=== PATIENT | male | born 1955 | race Asian ===

== ENCOUNTER 2021-11-19 07:53 | Emergency (ER) | payer MEDICAID, OTHER ==
[~2021-11-19] VITALS: Ht 154.9 cm; Wt 64.0 kg
[~2021-11-19 07:53] MED LIST: AZIT500T9 PO
[2021-11-19] MEDS ORDERED: ibuprofen 200mg tablet PO ONE (09:20)
[2021-11-19] MEDS ORDERED: dexamethasone sod phosphate 10mg/ml inj IM STA (10:36)
[2021-11-19] MEDS ORDERED: LIDOcaine 5% patch TP STA (10:36)
[2021-11-19] MEDS ORDERED: DEXA6TAB6 PO (12:24)
[2021-11-19] MEDS ORDERED: LIDO700A32 TOP (12:26)
[2021-11-19] MEDS ORDERED: HYDR-3972 PO (12:26)
[2021-11-19 13:19] VITALS: BP 155/93
== END 2021-11-19 13:23 | disposition home or self-care (01) ==
LOC: ER 07:54
DX: M54.50 Low back pain, unspecified (principal); M79.605 Pain in left leg; M25.552 Pain in left hip; E11.9 Type 2 diabetes mellitus without complications; I50.9 Heart failure, unspecified; Z98.890 Other specified postprocedural states; Z79.2 Long term (current) use of antibiotics; Z79.899 Other long term (current) drug therapy
CPT/HCPCS: 72100; 72170; 96372; 99284; J1100

== ENCOUNTER 2023-09-15 19:06 | Inpatient (IN) | payer MEDICARE, MEDICAID ==
[~2023-09-15] VITALS: Ht 154.9 cm; Wt 63.0 kg
[~2023-09-15 19:06] MED LIST changes: +DEXA6TAB6 PO; +LIDO700A32 TOP
[2023-09-15] MEDS: morphine 4 MG/ML inj SYRINge IV ONE (19:25)
[2023-09-15 19:45] LABS: BASOPHILS % (AUTO) 0.1 % (0-1); EOSINOPHILS # (AUTO) 0.1 X10'3 (0-0.9); EOSINOPHILS % (AUTO) 0.7 % (0-6); HEMATOCRIT 46.6 % (42.0-52.0); HEMOGLOBIN 15.6 g/dl (14.0-17.9); LYMPHOCYTES # (AUTO) 0.7 X10'3 (1.1-4.8); LYMPHOCYTES % (AUTO) 9.4 % (21-51); MEAN CORPUSCULAR HEMOGLOBIN 30.5 PG (27.0-31.0); MEAN CORPUSCULAR HGB CONC 33.5 g/dL (33.0-36.5); MEAN CORPUSCULAR VOLUME 90.9 FL (78-98); MEAN PLATELET VOLUME 9.7 FL (7.4-10.4); MONOCYTES # (AUTO) 0.7 X10'3 (0-0.9); MONOCYTES % (AUTO) 9.4 % (2-12); NEUTROPHILS % (AUTO) 80.4 % (42-75); PLATELET COUNT 134 X10'3 (140-440); RED BLOOD COUNT 5.12 X10'6 (4.70-6.10); RED CELL DISTRIBUTION WIDTH 13.9 % (11.5-14.5); WHITE BLOOD COUNT 7.5 X10'3 (4.5-11.0)
[2023-09-15] MEDS: ondansetron/PF 4mg/2ml inj IV ONE ×2 (19:45→21:24)
[2023-09-15 20:03] LABS: ALANINE AMINOTRANSFERASE 25 U/L (12-78); ALBUMIN 2.6 G/DL (3.4-5.0); ALBUMIN/GLOBULIN RATIO 0.7 (1.1-1.5); ALKALINE PHOSPHATASE 78 IU/L (46-116); ANION GAP 11 (8-16); ASPARTATE AMINO TRANSFERASE 28 U/L (10-37); BILIRUBIN,TOTAL 1.6 MG/DL (0.1-1.0); BLOOD UREA NITROGEN 33 MG/DL (7-18); BUN/CREATININE RATIO 24.3 (10.0-20.0); CALCIUM 7.7 MG/DL (8.5-10.1); CHLORIDE 104 MMOL/L (99-107); CREATININE 1.36 MG/DL (0.60-1.10); GLUCOSE 293 MG/DL (70-104); POTASSIUM 4.3 MMOL/L (3.5-5.1); SODIUM 137 MMOL/L (135-145); TOTAL CARBON DIOXIDE 22.1 MMOL/L (24-32); TOTAL PROTEIN 6.3 G/DL (6.4-8.2); eCRCL 40 ML/MIN; eGFR 53 ML/MIN
[2023-09-15] MEDS: ringers solution, lactated 1000ml IV soln IV ONE (20:07)
[2023-09-15] MEDS: insulin regular, human 10 units/0.1 ml syringe SQ ONE (20:12)
[2023-09-15] MEDS ORDERED: CARV25TA3 PO (20:44)
[2023-09-15] MEDS ORDERED: [UNRECOGNIZED DRUG - OTHER] (20:44)
[2023-09-15] MEDS ORDERED: INSU100I31 SQ (20:44)
[2023-09-15] MEDS ORDERED: APIX5TAB3 PO (20:44)
[2023-09-15] MEDS ORDERED: CYCL-394 PO (20:44)
[2023-09-15] MEDS: diltiazem 5mg/ml 5ml inj. IV ONE (20:52)
[2023-09-15] MEDS: diltiazem-NS 100mg/100ml 100 ML IV SCH (20:53)
[2023-09-15] MEDS: morphine 10mg/ml inj. IV ONE (21:25)
[2023-09-15] MEDS: piperacillin/tazo 3.375gm/50ml 50 ML IV ONE (21:25)
[2023-09-15] MEDS: normal saline 1000ML IV soln IVB ONE (21:25)
[2023-09-15] MEDS ORDERED: meperidine/PF 25mg/ml syringe IV PRN ×6 (21:30→23:05)
[2023-09-15] MEDS ORDERED: enalaprilat dihydrate 2.5mg/2ml vial IV PRN ×2 (21:30→23:05)
[2023-09-15] MEDS ORDERED: morphine 2 MG/ML inj. syringe IV PRN ×2 (21:30→23:05)
[2023-09-15] MEDS ORDERED: proCHLORperazine 10 MG/2 ml inj IV PRN ×2 (21:30→23:05)
[2023-09-15] MEDS ORDERED: ondansetron/PF 4mg/2ml inj IV PRN ×2 (21:30→23:05)
[2023-09-15] MEDS ORDERED: morphine 4 MG/ML inj SYRINge IV PRN ×2 (21:30→23:05)
[2023-09-15] MEDS ORDERED: magnesium Cl slow-release 64mg tablet PO PRN (22:20)
[2023-09-15] MEDS ORDERED: potassium Cl 20 mEq SR tablet PO PRN ×2 (22:20)
[2023-09-15] MEDS ORDERED: magnesium 4gm in 100ml NS 100 ML IV PRN (22:20)
[2023-09-15] MEDS ORDERED: magnesium 2GM in 50ml NS 50 ML IV PRN (22:20)
[2023-09-15] MEDS ORDERED: potassium Cl 40MEQ/1/2NS 520ml 520 ML IV PRN (22:20)
[2023-09-15] MEDS ORDERED: DEXTROSE 15 GM of carb/4 tabs (each vial/BOTTLE has 4 tablets) PO PRN ×2 (22:40)
[2023-09-15] MEDS ORDERED: glucagon, human recombinant 1mg kit SUBCUT PRN (22:40)
[2023-09-15] MEDS ORDERED: dextrose 50%-water 50ml dispensing syringe IV PRN ×2 (22:40)
[2023-09-15] MEDS ORDERED: sevoflurane 250ml liquid IH ONE (22:55)
[2023-09-15] MEDS ORDERED: labetalol 20mg/4ml (5mg/ml) syringe IV PRN (23:05)
[2023-09-15] MEDS ORDERED: fentaNYL /PF 50mcg/ml 5ml ampule ONE (23:06)
[2023-09-15] MEDS ORDERED: midazolam 1 mg/ML 2ml injection ONE (23:06)
[2023-09-15] MEDS ORDERED: rocuronium 10mg/ml inj IV ONE (23:25)
[2023-09-15] MEDS ORDERED: sodium bicarbonate (8.4%) inj. 1 MEQ/ML ML ONE (23:32)
[2023-09-15] MEDS ORDERED: phenylephrine 10mg/ml inj. -priapism dosing ONE (23:38)
[2023-09-15 23:53] LABS: HEMOGLOBIN A1C 10.6 % (4.5-6.2)
[2023-09-16] VITALS (30 sets, daily range): BP systolic 105–186; BP diastolic 60–99; PULSE 72–110; RESP 8–24; O2SAT 93–98
[2023-09-16 00:08] LABS: ABG BASE EXCESS -1.1 mmol/L (-2.0-2.0); ABG HCO3 21.4 mmol/L (22.0-26.0); ABG OXYGEN SATURATION 99.5 % (94-97); ABG PCO2 (T) 29.3 mmHg (35.0-48.0); ABG PH (T) 7.481 (7.340-7.440); ABG PO2 (T) 178.7 mmHg (75.0-100.0); FCOHb 0.8 % (0.0-3.9); FHHb 0.5 % (0.0-5.0); FMetHb 0.1 % (0.0-1.5); FO2Hb 98.6 % (94-97); MODE OR; PATIENT TEMPERATURE 36.5; TOTAL HEMOGLOBIN 14.2 G/dl (14.0-17.9)
[2023-09-16] MEDS ORDERED: BUPIVAcaine 0.5% inj/PF 30 ML ONE (00:21)
[2023-09-16] MEDS: labetalol 20mg/4ml (5mg/ml) syringe IV PRN (00:59)
[2023-09-16] MEDS: ringers solution, lacted 1,000 ML IV SCH ×3 (01:32→17:27)
[2023-09-16] MEDS: diltiazem-NS 100mg/100ml 100 ML IV SCH (02:21)
[2023-09-16] MEDS: normal saline 1000ml 1,000 ML IV SCH (02:22)
[2023-09-16] MEDS: HYDROmorphone/PF 0.2 MG/ML SYRINGE IV PRN (02:22)
[2023-09-16] MEDS: morphine 2 MG/ML inj. syringe IV PRN (04:34)
[2023-09-16 05:13] LABS: ALBUMIN 2.2 G/DL (3.4-5.0); ANION GAP 11 (8-16); BLOOD UREA NITROGEN 24 MG/DL (7-18); BUN/CREATININE RATIO 24.7 (10.0-20.0); CALCIUM 6.6 MG/DL (8.5-10.1); CHLORIDE 108 MMOL/L (99-107); CREATININE 0.97 MG/DL (0.60-1.10); GLUCOSE 251 MG/DL (70-104); MAGNESIUM 1.4 MG/DL (1.5-2.4); SODIUM 140 MMOL/L (135-145); TOTAL CARBON DIOXIDE 21.5 MMOL/L (24-32); eCRCL 56 ML/MIN; eGFR 78 ML/MIN
[2023-09-16 05:15] LABS: BASOPHILS % (AUTO) 0.1 % (0-1); EOSINOPHILS % (AUTO) 0.1 % (0-6); HEMATOCRIT 43.8 % (42.0-52.0); HEMOGLOBIN 14.5 g/dl (14.0-17.9); LYMPHOCYTES # (AUTO) 0.4 X10'3 (1.1-4.8); LYMPHOCYTES % (AUTO) 5.4 % (21-51); MEAN CORPUSCULAR HEMOGLOBIN 30.1 PG (27.0-31.0); MEAN CORPUSCULAR HGB CONC 33.1 g/dL (33.0-36.5); MEAN PLATELET VOLUME 9.7 FL (7.4-10.4); MONOCYTES # (AUTO) 0.4 X10'3 (0-0.9); MONOCYTES % (AUTO) 6.9 % (2-12); NEUTROPHILS # (AUTO) 5.6 X10'3 (1.8-7.7); NEUTROPHILS % (AUTO) 87.5 % (42-75); PLATELET COUNT 135 X10'3 (140-440); RED BLOOD COUNT 4.82 X10'6 (4.70-6.10); RED CELL DISTRIBUTION WIDTH 14.1 % (11.5-14.5); WHITE BLOOD COUNT 6.4 X10'3 (4.5-11.0)
[2023-09-16] MEDS: carVEDilol 12.5mg tablet PO SCH (08:45)
[2023-09-16] MEDS: heparin, porcine 5000 units/ml vial SQ SCH (08:45)
[2023-09-16] MEDS: K and/or MAG REPLACEMENT MC SCH (08:46)
[2023-09-16] MEDS: piperacillin/tazo 4.5gm/100ml 100 ML IV SCH (09:05)
[2023-09-16] MEDS: INSULIN LISPRO 100 UNIT/ML INSULN.PEN MULTI-DOSE SQ SCH (09:26)
[2023-09-16] MEDS: ondansetron/PF 4mg/2ml inj IV PRN (14:20)
[2023-09-16] MEDS ORDERED: NITR0.4T51 SL (14:46)
[2023-09-16] MEDS ORDERED: INSU300I12 SQ (14:46)
[2023-09-16 18:58] LABS: MAGNESIUM 1.8 MG/DL (1.5-2.4); POTASSIUM 4.1 MMOL/L (3.5-5.1)
[2023-09-16] MEDS: enoxaparin 40mg/0.4ml syringe SUBCUT SCH (20:03)
[2023-09-17] VITALS (32 sets, daily range): BP systolic 129–180; BP diastolic 66–106; PULSE 65–131; RESP 13–36; TEMP 98–98.8; O2SAT 92–96
[2023-09-17] MEDS: HYDROmorphone inj. 0.5 MG/0.5 ML DISP.SYRIN IV PRN (00:36)
[2023-09-17 03:19] LABS: BASOPHILS % (AUTO) 0.1 % (0-1); EOSINOPHILS % (AUTO) 0 % (0-6); HEMOGLOBIN 13.9 g/dl (14.0-17.9); LYMPHOCYTES # (AUTO) 0.7 X10'3 (1.1-4.8); MEAN PLATELET VOLUME 9.3 FL (7.4-10.4); MONOCYTES # (AUTO) 0.9 X10'3 (0-0.9); MONOCYTES % (AUTO) 8.7 % (2-12); NEUTROPHILS # (AUTO) 8.6 X10'3 (1.8-7.7); NEUTROPHILS % (AUTO) 84.2 % (42-75); PLATELET COUNT 144 X10'3 (140-440); RED BLOOD COUNT 4.62 X10'6 (4.70-6.10); RED CELL DISTRIBUTION WIDTH 14.2 % (11.5-14.5); WHITE BLOOD COUNT 10.2 X10'3 (4.5-11.0)
[2023-09-17 04:01] LABS: ANION GAP 8 (8-16); BLOOD UREA NITROGEN 22 MG/DL (7-18); BUN/CREATININE RATIO 22.2 (10.0-20.0); CALCIUM 7.3 MG/DL (8.5-10.1); CHLORIDE 105 MMOL/L (99-107); CREATININE 0.99 MG/DL (0.60-1.10); GLUCOSE 253 MG/DL (70-104); MAGNESIUM 1.8 MG/DL (1.5-2.4); POTASSIUM 4.1 MMOL/L (3.5-5.1); SODIUM 137 MMOL/L (135-145); TOTAL CARBON DIOXIDE 24.5 MMOL/L (24-32); eCRCL 55 ML/MIN; eGFR 76 ML/MIN
[2023-09-17] MEDS: magnesium 2GM in 50ml NS 50 ML IV ONE (08:09)
[2023-09-17] MEDS: diltiazem-NS 100mg/100ml 100 ML IV SCH ×2 (09:11→09:38)
[2023-09-17] MEDS: morphine 2 MG/ML inj. syringe IV PRN (17:40)
[2023-09-17] MEDS: ketorolac tromethamine 15mg/ml inj. IV ONE (19:50)
[2023-09-18] VITALS (23 sets, daily range): BP systolic 136–163; BP diastolic 65–106; PULSE 57–94; RESP 16–30; TEMP 98.1–98.8; O2SAT 90–95
[2023-09-18 11:35] LABS: BASOPHILS % (AUTO) 0 % (0-1); EOSINOPHILS % (AUTO) 0.1 % (0-6); HEMATOCRIT 44.9 % (42.0-52.0); LYMPHOCYTES % (AUTO) 6.5 % (21-51); MEAN CORPUSCULAR HEMOGLOBIN 30.2 PG (27.0-31.0); MEAN CORPUSCULAR HGB CONC 33.3 g/dL (33.0-36.5); MEAN CORPUSCULAR VOLUME 90.6 FL (78-98); MEAN PLATELET VOLUME 7.8 FL (7.4-10.4); MONOCYTES # (AUTO) 1.1 X10'3 (0-0.9); NEUTROPHILS # (AUTO) 13.6 X10'3 (1.8-7.7); NEUTROPHILS % (AUTO) 86.4 % (42-75); PLATELET COUNT 161 X10'3 (140-440); RED BLOOD COUNT 4.96 X10'6 (4.70-6.10); RED CELL DISTRIBUTION WIDTH 13.8 % (11.5-14.5); WHITE BLOOD COUNT 15.8 X10'3 (4.5-11.0)
[2023-09-18 11:53] LABS: ALBUMIN 2.1 G/DL (3.4-5.0); ANION GAP 9 (8-16); BLOOD UREA NITROGEN 25 MG/DL (7-18); BUN/CREATININE RATIO 27.5 (10.0-20.0); CALCIUM 7.8 MG/DL (8.5-10.1); CHLORIDE 106 MMOL/L (99-107); CREATININE 0.91 MG/DL (0.60-1.10); GLUCOSE 265 MG/DL (70-104); MAGNESIUM 2.1 MG/DL (1.5-2.4); POTASSIUM 3.9 MMOL/L (3.5-5.1); SODIUM 139 MMOL/L (135-145); TOTAL CARBON DIOXIDE 24.1 MMOL/L (24-32); eCRCL 60 ML/MIN; eGFR 84 ML/MIN
[2023-09-18] MEDS: diltiazem CD 180mg cap (once-daily) PO SCH (14:12)
[2023-09-18] MEDS ORDERED: carVEDilol 12.5mg tablet PO SCH (20:00)
[2023-09-18] MEDS: carVEDilol 12.5mg tablet PO SCH (20:21)
[2023-09-18] MEDS ORDERED: hydrALAZINE 20mg/ml inj. IV PRN (21:35)
[2023-09-18] MEDS: insulin glargine (Lantus) pen - multi-dose SQ SCH (21:53)
[2023-09-19] VITALS (21 sets, daily range): BP systolic 129–176; BP diastolic 73–105; PULSE 53–89; RESP 9–25; TEMP 97.3–98.2; O2SAT 91–95
[2023-09-19 03:40] LABS: BASOPHILS % (AUTO) 0.2 % (0-1); EOSINOPHILS % (AUTO) 0.2 % (0-6); HEMATOCRIT 50.2 % (42.0-52.0); HEMOGLOBIN 16.6 g/dl (14.0-17.9); LYMPHOCYTES # (AUTO) 1.4 X10'3 (1.1-4.8); LYMPHOCYTES % (AUTO) 8.3 % (21-51); MEAN CORPUSCULAR HEMOGLOBIN 29.5 PG (27.0-31.0); MEAN CORPUSCULAR VOLUME 89.5 FL (78-98); MEAN PLATELET VOLUME 8.2 FL (7.4-10.4); NEUTROPHILS # (AUTO) 14.6 X10'3 (1.8-7.7); NEUTROPHILS % (AUTO) 85.3 % (42-75); PLATELET COUNT 209 X10'3 (140-440); RED BLOOD COUNT 5.61 X10'6 (4.70-6.10); RED CELL DISTRIBUTION WIDTH 14.1 % (11.5-14.5); WHITE BLOOD COUNT 17.1 X10'3 (4.5-11.0)
[2023-09-19 04:01] LABS: ALBUMIN 2.5 G/DL (3.4-5.0); ANION GAP 8 (8-16); BLOOD UREA NITROGEN 21 MG/DL (7-18); BUN/CREATININE RATIO 23.6 (10.0-20.0); CALCIUM 8.2 MG/DL (8.5-10.1); CHLORIDE 105 MMOL/L (99-107); CREATININE 0.89 MG/DL (0.60-1.10); FREE T4 (FREE THYROXINE) 1.28 NG/DL (0.73-1.40); GLUCOSE 205 MG/DL (70-104); POTASSIUM 3.8 MMOL/L (3.5-5.1); SODIUM 139 MMOL/L (135-145); THYROID STIMULATING HORMONE 1.06 ulU/ml (0.34-4.50); TOTAL CARBON DIOXIDE 25.6 MMOL/L (24-32); eCRCL 61 ML/MIN; eGFR 86 ML/MIN
[2023-09-19] MEDS: diltiazem 5mg/ml 5ml inj. IV ONE (14:00)
[2023-09-20] VITALS (8 sets, daily range): BP systolic 123–157; BP diastolic 79–99; PULSE 75–92; RESP 14–20; TEMP 96.5–98; O2SAT 96–100
[2023-09-20 07:03] LABS: BASOPHILS % (AUTO) 0.1 % (0-1); EOSINOPHILS # (AUTO) 0.2 X10'3 (0-0.9); HEMATOCRIT 42.2 % (42.0-52.0); HEMOGLOBIN 14.2 g/dl (14.0-17.9); LYMPHOCYTES # (AUTO) 1.3 X10'3 (1.1-4.8); LYMPHOCYTES % (AUTO) 11.1 % (21-51); MEAN CORPUSCULAR HEMOGLOBIN 30.1 PG (27.0-31.0); MEAN CORPUSCULAR HGB CONC 33.7 g/dL (33.0-36.5); MEAN CORPUSCULAR VOLUME 89.4 FL (78-98); MONOCYTES # (AUTO) 0.9 X10'3 (0-0.9); MONOCYTES % (AUTO) 7.4 % (2-12); NEUTROPHILS # (AUTO) 9.6 X10'3 (1.8-7.7); NEUTROPHILS % (AUTO) 79.4 % (42-75); PLATELET COUNT 171 X10'3 (140-440); RED BLOOD COUNT 4.72 X10'6 (4.70-6.10); RED CELL DISTRIBUTION WIDTH 13.4 % (11.5-14.5); WHITE BLOOD COUNT 12.1 X10'3 (4.5-11.0)
[2023-09-20 07:31] LABS: ALBUMIN 1.9 G/DL (3.4-5.0); ANION GAP 7 (8-16); BLOOD UREA NITROGEN 17 MG/DL (7-18); BUN/CREATININE RATIO 21.5 (10.0-20.0); CALCIUM 7.6 MG/DL (8.5-10.1); CHLORIDE 104 MMOL/L (99-107); CHOL/HDL RATIO 7.8 (0.00-4.99); CHOLESTEROL 164 MG/DL (0-200); CREATININE 0.79 MG/DL (0.60-1.10); GLUCOSE 163 MG/DL (70-104); HDL CHOLESTEROL 21 MG/DL (35-60); LDL CHOLESTEROL 121 MG/DL (50-100); MAGNESIUM 1.7 MG/DL (1.5-2.4); POTASSIUM 3.7 MMOL/L (3.5-5.1); SODIUM 137 MMOL/L (135-145); TOTAL CARBON DIOXIDE 25.7 MMOL/L (24-32); TRIGLYCERIDES 112 MG/DL (20-135); eCRCL 68 ML/MIN; eGFR > 90 ML/MIN
[2023-09-20] MEDS ORDERED: metoclopramide 5 mg/ml inj IV PRN (12:25)
[2023-09-20] MEDS: furosemide 40mg/4ml inj IV ONE (14:04)
[2023-09-20] MEDS ORDERED: magnesium 2GM in 50ml NS 50 ML IV PRN (18:40)
[2023-09-20] MEDS ORDERED: magnesium 4gm in 100ml NS 100 ML IV PRN (18:40)
[2023-09-20] MEDS ORDERED: potassium Cl 20 mEq SR tablet PO PRN (18:40)
[2023-09-20] MEDS ORDERED: potassium Cl 40MEQ/1/2NS 520ml 520 ML IV PRN (18:40)
[2023-09-20] MEDS ORDERED: magnesium Cl slow-release 64mg tablet PO PRN (18:40)
[2023-09-20] MEDS: K and/or MAG REPLACEMENT MC SCH (20:00)
[2023-09-20] MEDS: piperacillin/tazo 4.5gm/100ml 100 ML IV SCH (20:05)
[2023-09-21] VITALS (9 sets, daily range): BP systolic 107–137; BP diastolic 70–85; PULSE 63–89; RESP 13–20; TEMP 97.8–98.4; O2SAT 95–97
[2023-09-21 07:57] LABS: MAGNESIUM 1.6 MG/DL (1.5-2.4)
[2023-09-21 09:10] LABS: BASOPHILS % (AUTO) 0.1 % (0-1); EOSINOPHILS # (AUTO) 0.4 X10'3 (0-0.9); EOSINOPHILS % (AUTO) 2.7 % (0-6); HEMATOCRIT 42.4 % (42.0-52.0); LYMPHOCYTES # (AUTO) 1.9 X10'3 (1.1-4.8); LYMPHOCYTES % (AUTO) 14.4 % (21-51); MEAN CORPUSCULAR HEMOGLOBIN 29.6 PG (27.0-31.0); MEAN CORPUSCULAR VOLUME 89.7 FL (78-98); MEAN PLATELET VOLUME 8.5 FL (7.4-10.4); MONOCYTES # (AUTO) 0.9 X10'3 (0-0.9); MONOCYTES % (AUTO) 7.2 % (2-12); NEUTROPHILS # (AUTO) 9.9 X10'3 (1.8-7.7); NEUTROPHILS % (AUTO) 75.6 % (42-75); PLATELET COUNT 208 X10'3 (140-440); RED BLOOD COUNT 4.73 X10'6 (4.70-6.10); RED CELL DISTRIBUTION WIDTH 13.3 % (11.5-14.5); WHITE BLOOD COUNT 13.1 X10'3 (4.5-11.0)
[2023-09-21 09:20] LABS: ALANINE AMINOTRANSFERASE 17 U/L (12-78); ALBUMIN 1.8 G/DL (3.4-5.0); ALBUMIN/GLOBULIN RATIO 0.5 (1.1-1.5); ALKALINE PHOSPHATASE 63 IU/L (46-116); ANION GAP 5 (8-16); ASPARTATE AMINO TRANSFERASE 22 U/L (10-37); BILIRUBIN,TOTAL 1.4 MG/DL (0.1-1.0); BLOOD UREA NITROGEN 17 MG/DL (7-18); BUN/CREATININE RATIO 18.5 (10.0-20.0); CALCIUM 7.4 MG/DL (8.5-10.1); CHLORIDE 103 MMOL/L (99-107); CREATININE 0.92 MG/DL (0.60-1.10); GLUCOSE 111 MG/DL (70-104); SODIUM 134 MMOL/L (135-145); TOTAL CARBON DIOXIDE 26.4 MMOL/L (24-32); TOTAL PROTEIN 5.2 G/DL (6.4-8.2); eCRCL 58 ML/MIN; eGFR 82 ML/MIN
[2023-09-21] MEDS: potassium Cl 40MEQ/1/2NS 520ml 520 ML IV PRN (11:54)
[2023-09-21] MEDS: potassium Cl 20 mEq SR tablet PO PRN (20:22)
[2023-09-22 02:00] VITALS: BP 120/80; PULSE 79; RESP 18; TEMP 97.4; O2SAT 97
[2023-09-22 06:00] VITALS: BP 127/83; PULSE 73; RESP 13; TEMP 98.1; O2SAT 97
[2023-09-22] MEDS: apixaban 5mg tablet PO SCH (07:38)
[2023-09-22 08:18] LABS: BASOPHILS % (AUTO) 0.2 % (0-1); EOSINOPHILS # (AUTO) 0.4 X10'3 (0-0.9); EOSINOPHILS % (AUTO) 2.7 % (0-6); HEMATOCRIT 41.1 % (42.0-52.0); HEMOGLOBIN 13.7 g/dl (14.0-17.9); LYMPHOCYTES # (AUTO) 1.7 X10'3 (1.1-4.8); LYMPHOCYTES % (AUTO) 12.1 % (21-51); MEAN CORPUSCULAR HEMOGLOBIN 29.6 PG (27.0-31.0); MEAN CORPUSCULAR HGB CONC 33.3 g/dL (33.0-36.5); MEAN CORPUSCULAR VOLUME 88.8 FL (78-98); MEAN PLATELET VOLUME 8.3 FL (7.4-10.4); MONOCYTES # (AUTO) 0.9 X10'3 (0-0.9); MONOCYTES % (AUTO) 6.5 % (2-12); NEUTROPHILS # (AUTO) 10.8 X10'3 (1.8-7.7); NEUTROPHILS % (AUTO) 78.5 % (42-75); PLATELET COUNT 223 X10'3 (140-440); RED BLOOD COUNT 4.63 X10'6 (4.70-6.10); RED CELL DISTRIBUTION WIDTH 13.3 % (11.5-14.5); WHITE BLOOD COUNT 13.8 X10'3 (4.5-11.0)
[2023-09-22 08:56] LABS: ALANINE AMINOTRANSFERASE 21 U/L (12-78); ALBUMIN 1.9 G/DL (3.4-5.0); ALBUMIN/GLOBULIN RATIO 0.6 (1.1-1.5); ALKALINE PHOSPHATASE 66 IU/L (46-116); ANION GAP 6 (8-16); ASPARTATE AMINO TRANSFERASE 23 U/L (10-37); BILIRUBIN,TOTAL 1.4 MG/DL (0.1-1.0); BLOOD UREA NITROGEN 16 MG/DL (7-18); BUN/CREATININE RATIO 16.2 (10.0-20.0); CALCIUM 7.5 MG/DL (8.5-10.1); CHLORIDE 104 MMOL/L (99-107); CREATININE 0.99 MG/DL (0.60-1.10); GLUCOSE 93 MG/DL (70-104); MAGNESIUM 1.7 MG/DL (1.5-2.4); POTASSIUM 3.9 MMOL/L (3.5-5.1); SODIUM 136 MMOL/L (135-145); TOTAL CARBON DIOXIDE 26.2 MMOL/L (24-32); TOTAL PROTEIN 5.3 G/DL (6.4-8.2); eCRCL 54 ML/MIN; eGFR 76 ML/MIN
[2023-09-22] MEDS: acetaminophen 325mg tablet PO PRN (10:05)
[2023-09-22 11:00] VITALS: BP 105/71; PULSE 86; RESP 17; TEMP 97.1; O2SAT 98
[2023-09-22] MEDS ORDERED: LACT1CAP26 PO (13:16)
[2023-09-22] MEDS ORDERED: CEFD300C3 PO (13:16)
[2023-09-22] MEDS ORDERED: METR-159 PO (13:16)
[2023-09-22] MEDS ORDERED: DILT180C66 PO (13:16)
== END 2023-09-22 15:41 | disposition home or self-care (01) | DRG 907 ==
LOC: ER 19:07 → ED HOLD 22:19 → CICU 2S 09-16 01:23 → PCU 3S 09-17 11:37
PROVIDERS: ADMIT Student in an Organized Health Care Education/Training Program; ATTEND Family Medicine
PROC: 0D1N0Z4 Bypass Sigmoid Colon to Cutaneous, Open Approach (ICD-10-PCS; principal; 2023-09-16)
PROC: 0DBN0ZZ Excision of Sigmoid Colon, Open Approach (ICD-10-PCS; 2023-09-16)
DX: K91.71 Accidental puncture and laceration of a digestive system organ or structure during a digestive system procedure (principal); K65.0 Generalized (acute) peritonitis; E87.20 Acidosis, unspecified; I48.20 Chronic atrial fibrillation, unspecified; K56.7 Ileus, unspecified; S36.533A Laceration of sigmoid colon, initial encounter; G89.29 Other chronic pain; I50.9 Heart failure, unspecified; D49.1 Neoplasm of unspecified behavior of respiratory system; E11.9 Type 2 diabetes mellitus without complications; Y73.8 Miscellaneous gastroenterology and urology devices associated with adverse incidents, not elsewhere classified; E83.51 Hypocalcemia; Z79.01 Long term (current) use of anticoagulants; Z79.4 Long term (current) use of insulin; Z79.899 Other long term (current) drug therapy; Y92.89 Other specified places as the place of occurrence of the external cause; Y93.89 Activity, other specified; Y99.8 Other external cause status
CPT/HCPCS: 36415; 36600; 74018; 80048; 80053; 80061; 82803; 82948; 83036; 83605; 83735; 84132; 84145; 84439; 84443; 84484; 85018; 85025; 86885; 86900; 86901; 87040; 87081; 88307; 93005; 93308; 97110; 97161; 97530; 99285; A4421; A4615; A4618; A4649; A6213; A6223; A6258; A6402; A6449; A7000; G0378; J1100; J1170; J1644; J1650; J1815; J1940; J2250; J2270; J2274; J2370; J2405; J2543; J2710; J3010; J3475; J3480; J3490; J7030; J7040; J7120